=== PATIENT | female | born 1930 | race Caucasian/White ===

== ENCOUNTER 2017-02-10 22:13 | Inpatient (IN) | payer MEDICARE ==
[~2017-02-10] VITALS: Ht 152.4 cm; Wt 62.3 kg
[~2017-02-10 22:13] MED LIST: AMLO2.5T PO; ATOR10TA66 PO; LEVO50TA6 PO; MONT10TA23 PO; OXYC5TAB72 PO; SERT100T9 PO; TOLT2TAB5 PO
[2017-02-10 22:27] VITALS: BP 224/57; PULSE 75; RESP 14; O2SAT 96
[2017-02-10 22:51] LABS: BASOPHILS % (AUTO) 0.3 % (0-3); EOSINOPHILS % (AUTO) 1.5 % (0-5); MONOCYTES % (AUTO) 6.4 % (4-12); Mean Corpuscular Hemoglobin 29.5 pg (27.0-35.0); Mean Corpuscular Volume 87.4 fL (81-100); Platelet Count 183 bil/L (150-400)
[2017-02-10 23:39] LABS: D-Dimer 2.44 mg/L FEU (<0.50); INR 0.96 ratio
[2017-02-10] MEDS: HYDROmorphone 1 mg/mL Inj IVPUSH PRN (23:40)
--- NOTE | 2017-02-10 23:40 | ED.REPORT ---
HPI-Abd Pain F 40 and Over Date of Service February 10, 2017 ED Provider: Yariel Guajardo MD Patient is an 86-year-old female with history of DVT, hyperlipidemia, hypothyroidism and depression presents to [facility] ED via EMS complaining of severe abdominal pain that started 4 hours ago after eating salad and soup for dinner. Patient lives independently and states she has been feeling well until this afternoon. She called her daughter about 2 hours after the onset of symptoms stating that she had vomited 3 times and that pain was getting worse. Patient denies chills, fever, chest pain, shortness of breath, diarrhea, dysuria, weakness. Patient states that the pain is similar to gallbladder attack pain that she used to have about 10 years ago prior to her cholecystectomy. Her nausea was relieved by Zofran given to her in the ambulance. She states her pain is intermittent, located in the midabdomen and is 8 out of 10. Denies hematemesis melena hematochezia. Recent diarrheal episode resolved with a single dose of Imodium. No prior similar episodes. . Nursing Notes Stated Complaint: ABDOMINAL PAIN Chief Complaint: Female Abdominal Pain Nursing Notes Reviewed: Yes Allergies: Coded Allergies: losartan (Verified Allergy, Unknown, RASH, 02/10/17) Uncoded Allergies: nsaids (Adverse Reaction, Intermediate, renal impairment, 01/27/12) Scheduled Amlodipine (Amlodipine) 2.5 Mg Tablet 2.5 MG PO DAILY Atorvastatin Calcium (Atorvastatin Calcium) 10 Mg Tablet 20 MG PO DAILY Levothyroxine (Levothyroxine) 50 Mcg Tablet 50 MCG PO DAILY Montelukast (Montelukast) 10 Mg Tablet 10 MG PO HS Sertraline HCl (Sertraline) 100 Mg Tablet 100 MG PO DAILY Tolterodine Tartrate (Tolterodine Tartrate) 2 Mg Tablet 2 MG PO DAILY Scheduled PRN oxyCODONE (oxyCODONE) 5 Mg Tablet 5 MG PO BID PRN PRN For Pain General Time Seen by MD: 10:55 Transferred From: senior living Chief Complaint Abdominal pain Hx Obtained From: Patient, Daughter Arrived By: Ambulance Sudden in Onset?: Yes Onset Occurred: 1 - 4 hours ago Context of Onset: Eating Symptom Duration: 1 - 4 hours Progression since Onset: Unchanged Location: : Periumbilical Quality: Same as prior Radiation: : Does not radiate Severity: Current: Severe Associated with: Reports: Vomiting Pertinent Negative: Pt denies other symptoms Risk Factors )( AAA Risk Stratification Hypertension CAD Risk Stratification Diabetes mellitus Hyperlipidemia Hypertension TAD Risk Stratification Hypertension Past Medical History Past Medical History Varicose veins Hearing loss Hypertension DVT, left lower extremity, 2015 no longer on Coumadin Reports: Asthma, COPD, Diabetes mellitus (diet controlled), Hyperlipidemia Reports: Depression, Renal insufficiency Past Surgical History Stapedectomy Breast Bx Reports: Cataract surgery, Cholecystectomy, Denies: Appendectomy Reports: Hip replacement (Right) Smoking History Former Smoker Social History Alcohol Use: "Social" Other Social History: Good social support, Lives alone Ambulatory Status Walker Review of Systems Constitutional: Denies: Chills, Fatigue, Fever, Lethargy Respiratory: Denies: Shortness of breath Cardiovascular: Denies: Chest pain, Edema, Palpitations, Syncope GI: Reports: Abdominal pain, Nausea, Vomiting, Denies: Constipation, Diarrhea, Hematemesis, Hematochezia, Melena Female: Denies: Dysuria, Flank pain Musculoskeletal: Denies: Back pain, Extremity swelling Physical Exam Vital Signs Vital Signs (First) Date Time Temp Pulse Resp B/P Pulse Ox O2 Delivery O2 Flow Rate FiO2 02/10/17 22:27 36.3 75 14 224/57 96 Room Air 02/11/17 00:48 2 Initial VS: Reviewed, Vital signs abnormal (BP 224/57) General/Constitutional: Awake, Alert, Well appearing, Well developed, Well nourished Distress / Hydration: Positive: Distress mild Respiratory / Chest: Atraumatic, Breath sounds NL, No respiratory distress, No rales, No rhonchi, No wheezing Cardiovascular: Regular rhythm, Heart sounds NL, No murmurs, Cap refill not delayed Abdomen: Atraumatic, No guarding, No rebound, BS normoactive, No palpable mass , No pulsatile mass Tenderness/Guarding/Rebound: Positive: Tender periumbilical Back: Atraumatic, Inspection NL, Non-tender Head / Eyes: Atraumatic, Normocephalic, PERRL, EOMI ENT: Atraumatic, Mucous membranes moist Skin: No rash, Warm, Dry Neurologic: Oriented X3 Cranial Nerve Deficit: Positive: 8 - auditory deficit Psychiatric: Affect NL, Thought content NL Interpretation & Diagnostics Lab Results Interpretation Result Diagram: 02/10/17223602/10/172236 Test 02/10/17 22:37 02/10/17 22:43 02/10/17 23:27 02/11/17 01:36 White Blood Count 15.1th/mm3 (3.8-10.1) Red Blood Count 5.46mil/mm3 (3.90-5.20) Hemoglobin 16.1g/dL (12.0-15.6) Hematocrit 47.7% (35.0-46.0) Mean Corpuscular Volume 87.4fL (81-100) Mean Corpuscular Hemoglobin 29.5pg (27.0-35.0) Mean Corpuscular Hemoglobin Concent 33.8% (32.0-37.0) Red Cell Distribution Width 13.4% (12.3-15.4) Platelet Count 183bil/L (150-400) Neutrophils (%) (Auto) 87.0% (40-74) Lymphocytes (%) (Auto) 4.6% (14-46) Monocytes (%) (Auto) 6.4% (4-12) Eosinophils (%) (Auto) 1.5% (0-5) Basophils (%) (Auto) 0.3% (0-3) Sodium Level 143mEq/L (134-144) Potassium Level 3.4mEq/L (3.5-5.2) Chloride Level 99mEq/L (97-108) Carbon Dioxide Level 27mmol/L (18-29) Blood Urea Nitrogen 30mg/dL (8-27) Creatinine 0.97mg/dL (0.57-1.00) Estimat Glomerular Filtration Rate 78mL/min (>59) Glucose Level 220mg/dL (60-99) Calcium Level 10.1mg/dL (8.5-10.1) Magnesium Level 2.0mg/dL (1.6-2.6) Total Bilirubin 0.3mg/dL (0.0-1.2) Aspartate Amino Transf (AST/SGOT) 16U/L (0-50) Alanine Aminotransferase (ALT/SGPT) 14U/L (0-32) Alkaline Phosphatase 71U/L (25-165) Total Protein 7.3g/dL (6.4-8.4) Albumin 3.9g/dL (3.4-5.0) Lipase 32U/L (13-60) Prothrombin Time 10.3sec (8.1-12.5) Prothromb Time International Ratio 0.96ratio D-Dimer 2.44mg/L FEU (<0.50) Lactic Acid Level 1.0mmol/L (0.4-2.0) Hold Urine Received (Received) General Lab Results Interp 1: CMP normal except (potassium 3.4, BUN 30), CBC - leukocytosis (15.1) General Lab Results Interp 2: D-Dimer elevated (2.44) ECG Interpretation ECG Interpretation: Sinus rhythm, HR 78 PVC's Left ventricular hypertrophy Inverted T waves in inferior leads QT interval 556 Time: 10:50 Interpreted by: Other (Nazario, R1) Procedures NG Tube Insertion Time: 02:05 Procedure Performed by: Allied health pract (E) Site of Insertion: Nare left Size of Oral/NG Tube: 14 Fr (ER nurse) Placement/Verification/Secured: Insertion difficult Re-Eval/Medical Decision Med Decision/Clinical Course 86-year-old female presents with acute onset of abdominal pain. Found to be hypertensive, BP 224/57, have leukocytosis 15.1 and d-dimer 2.44. Dilaudid IV administered for pain with good response in terms of pain relief and blood pressure improvement to 177/58. Initial concerns for aortic dissection, ischemic bowel, obstruction, and diverticulitis evaluated with CT. CT abdomen and pelvis with contrast revealed small bowel obstruction. NG tube placed. Significant vascular disease all along the aorta, but contrast noted to be visible both in the superior and inferior mesenteric arteries. Both ostia are compromised, but there is blood flow to this point. No other evidence to suggest ischemic bowel. Patient will be admitted for treatment and management of SBO. Re-Evaluation/Progress : Time of Eval: 00:35 )( Re-Eval Abdomen: Tenderness (mid abdomen) Differential Diagnosis: Positive: Appendicitis, Bowel obstruction, Ischemic bowel, Mesenteric ischemia Counseled Regarding: Diagnosis, Lab results, Need for admission Discharge & Departure Shift Change Sign-Out Response to Therapy: Improved Departure Notes Dr. Guajardo, ED physician, discussed patient with night hospitalist, Dr. Reyes, who agreed with the plan to admit the patient. Primary Impression: SBO (small bowel obstruction) Additional Impression: Atherosclerosis of abdominal aorta Disposition: ADMITTED TO HOSPITAL Discharge Condition All VS Reviewed: Yes Condition: Stable Referrals: Aletha Maldonado MD (PCP) EDSupervising Provider for APC: Yariel Guajardo MD Attending Statement As attending of record for this patient, I conducted an independent history and physical exam, and agree with the documentation as per the resident note above, and as amended. copies to: Aletha Maldonado MD, Oksana S DO February 10, 2017 23:40 Yariel Guajardo MD February 11, 2017 07:08
[2017-02-10 23:41] VITALS: BP 181/49
[2017-02-11] VITALS (11 sets, daily range): BP systolic 158–197; BP diastolic 58–98; PULSE 58–88; RESP 12–20; O2SAT 92–97
[2017-02-11] MEDS ORDERED: Ondansetron 2 mg/mL 2 mL Inj IVPUSH PRN ×2 (01:50→13:00)
[2017-02-11] MEDS ORDERED: Polyethylene Glycol (PEG) 17 Gm Powder PO PRN ×2 (01:50→13:00)
[2017-02-11] MEDS ORDERED: Alum-Mag Hydrox-Simeth 30 mL Suspension PO PRN ×2 (01:50→13:00)
[2017-02-11] MEDS: 0.9% Sodium Chloride 1,000 ML IV SCH ×3 (02:54→20:44)
[2017-02-11] MEDS: HYDROmorphone 1 mg/mL Inj IVPUSH PRN ×4 (03:00→22:31)
--- NOTE | 2017-02-11 05:15 | NUR ---
ADMIT Patient admit for SBO. SALCEDO pulling bile like drainage. Right upper quadrant, hyperactive. Reports pain relieved at this time. Resting comfortably. Oriented to room and call light. Addendum: 02/11/17 at 0530 by HOMAR EMERSON RN Med [facility] Patient's daughter plans to bring in list this a.m. of her medications.
[2017-02-11 07:58] LABS: APPEARANCE,URINE CLEAR (CLEAR,HAZY); COLOR,URINE STRAW (YELLOW); OCCULT BLOOD,URINE NEGATIVE (NEGATIVE); PH,URINE 7.5 (5.0-8.0); UROBILINOGEN,URINE NORMAL (NORMAL)
--- NOTE | 2017-02-11 08:29 | DRSVH ---
PROCEDURE: X-RAY CHEST, TWO VIEWS ([id number]) INDICATIONS: abdominal pain TECHNIQUE: 2 views of the chest were acquired. COMPARISON: [facility], CR, CHEST 2VW, 03/21/2010, 7:56. Abdomen and pelvis CT from February. FINDINGS: Surgical changes and devices: None. Lungs and pleura: No pleural effusions or pneumothorax. Left basilar atelectasis otherwise the lungs are clear. Mediastinum: Mediastinal contours are normal. Heart size is normal. Bones and chest wall: No suspicious bony abnormalities. Soft tissues appear unremarkable. Elevatio n of the left hemidiaphragm. IMPRESSION: Normal chest radiograph. Dictated by: Gamaliel Oneil M.D. on 02/11/2017 at 8:18 Approved by: Gamaliel Oneil M.D. on 02/11/2017 at 8:22
[2017-02-11] MEDS: Heparin 5,000 Unit/mL Inj SUBQ SCH ×2 (08:55→16:24)
--- NOTE | 2017-02-11 09:20 | DRSVH ---
PROCEDURE: CT ABDOMEN AND PELVIS WITH CONTRAST ([id number]) INDICATIONS: abdominal pain TECHNIQUE: After the administration of intravenous contrast, 5 mm thick sections acquired from the diaphragm to the symphysis. 5 mm coronal and sagittal reformats were acquired. For radiation dose reduction, the following was used: automated exposure control, adjustment of mA and/or kV according to patient siz e. COMPARISON: None. FINDINGS: Image quality: Excellent. ABDOMEN: Lung bases: Lung bases are clear. Heart size is normal. Solid organs: Liver and spleen are normal in size. There is a 1.8 cm cyst in spleen. Gallbladder is surgically absent. Biliary system is mildly dilated. Pancreas enhances normally. No adrenal nodule s. Kidneys demonstrate normal size and enhancement, without hydronephrosis. Bilateral low density n odules compatible with renal cysts are present. Peritoneum and bowel: There is fluid in distal esophagus likely secondary to gastroesophageal reflux . Stomach is distended. Small bowel loops mildly distended measuring thickness up to 3.5 cm in diamet er. There is transitional point in the mid to distal ileum. Colon loops is decompressed. There are n umerous colonic diverticula in sigmoid colon. No evidence for acute diverticulitis. No free fluid or air. Nodes and vessels: No retroperitoneal or mesenteric adenopathy by size criteria. Aorta and inferior vena cava are normal in size. There is moderate to severe atherosclerosis. Miscellaneous: No ventral hernias. PELVIS: Genitourinary: Bladder is distended. Bladder wall thickness is normal. Uterus is atrophic. There is a 1.5 cm calcified fibroid. Miscellaneous: No inguinal hernias or adenopathy. Bones: No suspicious bony lesions. No vertebral body compression fractures. There is mild scoliosi s. Severe degenerative changes in lower thoracic and lumbar spine. A right hip prosthesis is noted. IMPRESSION: 1. The CT findings are consistent with moderate small bowel obstruction. The transitional point is in the mid to distal ileum. 2. Diverticulosis. No evidence of active diverticulitis. 3. Bilateral renal cysts and a splenic cyst. No significant discrepancy with the automotive general sales manager radiology preliminary report. Dictated by: Lesli Wilson M.D. on 02/11/2017 at 9:13 Transcribed by: JULIÁN on 02/11/2017 at 9:19 Approved by: Lesli Wilson M.D. on 02/12/2017 at 7:52
--- NOTE | 2017-02-11 10:36 | NUR ---
care transferred to Ximena Westfall RN. report given, patient moved to [facility] [place] [place] rm [id number].
[2017-02-11] MEDS ORDERED: AMLO5TAB2 PO (11:56)
[2017-02-11] MEDS ORDERED: BECL8.7A6 INHALATION (12:14)
[2017-02-11] MEDS ORDERED: ALBU18HF INH (12:14)
[2017-02-11] MEDS ORDERED: FLUT9.9S NS (12:14)
[2017-02-11] MEDS ORDERED: IMI25 PO (12:16)
[2017-02-11] MEDS ORDERED: Enalaprilat 1.25 mg/mL 2 mL Inj IVPUSH ONE (13:20)
--- NOTE | 2017-02-11 13:20 | PCM.HPMED ---
Subjective Date of Service February 11, 2017 Primary Provider: Admitting Physician: Chip eRyes MD Primary Care Physician: Aletha Maldonado MD Attending Physician: Chip Reyes MD Allergies Coded Allergies: losartan (Verified Allergy, Unknown, RASH, 02/10/17) PMH Social History Hx Alcohol Use: Yes (1/mo) Hx Substance Use: No Hx Tobacco Use: No (Exposed to 2nd hand smoke most of her life) Smoking Status: Former Smoker Exam Vital Signs Vital Sign - Last Date Time Temp Pulse Resp B/P Pulse Ox O2 Delivery O2 Flow Rate FiO2 02/11/17 11:46 36.7 58 15 186/86 93 Nasal Cannula 2.00 Intake and Output 02/10/17 02/10/17 02/11/17 Cumulative From/Thru 15:00 23:00 07:00 02/10/17 22:27 - 02/11/17 05:30 Output Total 1500 ml 1500 ml Balance -1500 ml -1500 ml Output Urine Total 800 ml 800 ml Gastric Drainage Total 700 ml 700 ml Lab and Diagnostics Result Diagram: 02/10/17223602/10/172236 Assessment & Plan HPI: Patient is an 86-year-old female presents with a complaint of abdominal pain, constipation, nausea, vomiting since last night. The patient stated that she had severe abdominal pain and decided to call her daughter who then brought her into the emergency room. The patient stated that she did have a bowel movement yesterday morning however as the day progressed she started having increasing abdominal pain. The patient was admitted to the emergency room and was found to have a small bowel obstruction based on CAT scan. NG tube was placed with significant output. Home medications: Albuterol 2 puffs every 4 when necessary Amlodipine 5 mg by mouth daily Atorvastatin 20 mg by mouth daily Qvar 2 puffs twice a day Flonase 2 sprays 3 times a day Levothyroxine 50 g by mouth daily Montelukast 10 mg by mouth daily Sertraline 100 mg by mouth daily Imitrex 25 mg by mouth when necessary headache Tolterodine titrate 2 mg by mouth daily Allergies: Losartan PMHx: HTN DM- diet controlled HLD Hypothyroid SHx: Cholecystectomy Left ear surgery FHx: Significant family history for heart disease. Mother had an NC at age 60, brother has had 3 MIs, patient had renal cause with NC's SocHx: Tobacco history: Patient denies Alcohol use: Patient denies Drug use: Patient denies ROS: A complete review of systems was performed or attempted to be performed. Please see HPI for pertinent positives, all other systems are negatives. Physical Exam: GEN: Patient was awake, alert, responding appropriately to questions HEENT: Pupils equal round and reactive to light, extraocular eye muscles intact , Neck soft supple, trachea midline, nomocephalic/atraumatic CV: +S1/S2, regular rate and rhythm, no murmurs auscultated Respiratory: CTAB, no wheezes, rales, rhonchi GI: +bowel sounds x4, soft, compressible, nontender to palpation EXT: no clubbing, cyanosis, edema Neuro: Cranial nerves II-XII grossly intact Psych: mood and affect were appropriate Assessment and Plan A 86-year-old female who presents to the emergency room with abdominal pain secondary to small bowel obstruction Abdominal pain secondary to small bowel obstruction -NG tube to suction -Nothing by mouth -Continue to monitor Hypertension (uncontrolled) -Home PO medications -Start enalapril 1.25 mg IV -Continue to monitor and adjust as necessary Hypothyroidism (stable) -Continue levothyroxine 50 g daily Depression (stable) -Continue Zoloft 100 mg by mouth Hyperlipidemia -Hold atorvastatin at this time will restart once patient is no longer nothing by mouth Asthma (currently stable) -Continue albuterol when necessary -Continue Qvar -Continue montelukast daily Migraines (he currently stable) -Imitrex when necessary Diet: Nothing by mouth DVT prophylaxis: Lovenox and SCDs Code Status: DNR/DNI Disposition: Due to the nature of the patient's current diagnosis anticipated stay is greater than 2 midnight Time spent 1 hour Mariama Lucia DO February 11, 2017 13:20
[2017-02-11] MEDS ORDERED: Albuterol 2.5 mg/3 mL Inhalation Solution NEB PRN (14:30)
--- NOTE | 2017-02-11 14:53 | PCM.ADCARE ---
Advance Care Planning Note Adv. Care Plan Documenation: Purpose of encounter: Goals of care Parties in attendance: The patient, her daughter Salud Decisional capacity: Good Plan: The patient is aware of the current diagnosis and would like to be DO NOT RESUSCITATE/DO NOT INTUBATE. The patient understands that no chest compressions will be done and the patient will not be intubated. The patient and family understands that no form of CPR will be attempted and are in agreement with this. The patient does still want other measures performed such as IV fluids, antibiotics, and possible blood transfusions but does not want any form of CPR. CODE STATUS: DO NOT RESUSCITATE/DO NOT INTUBATE Time spent with advanced care planning: Greater than 16 minutes Mariama Lucia DO February 11, 2017 14:53
--- NOTE | 2017-02-11 18:36 | NUR ---
pain, NG tube pt. c/o increased abd pain/cramping this afternoon; prn dilaudid 1mg iv given with relief. Pt. resting comfortably in bed. NG tube to continuous low suction; 250 ml dark green bile like liquid output. Denies n/v. Spears draining per gravity. NG tube clamped for 30 minutes after 1730 singulair dose administered; reconnected pt. to continuous low suction. 3L NC sats 93-95%.
[2017-02-11] MEDS: Fluticasone 100 mCg Inhaler INHALATION SCH (20:43)
[2017-02-12] MEDS: Heparin 5,000 Unit/mL Inj SUBQ SCH ×3 (01:01→17:22)
[2017-02-12 01:10] VITALS: BP 167/68; PULSE 65; RESP 18; O2SAT 94
[2017-02-12] MEDS: HYDROmorphone 1 mg/mL Inj IVPUSH PRN ×2 (05:53→14:54)
[2017-02-12 06:03] VITALS: BP 171/70; PULSE 75; RESP 17; O2SAT 94
--- NOTE | 2017-02-12 06:11 | NUR ---
Activity Pt reported as not having passed gas nor BM. Pt had intermittent abdomen pain. PRN Dilaudid 1mg IV given with good relief. Spears draining to gravity. NG tube on low continuous suction with 250 ml dark green output.
[2017-02-12 06:56] LABS: Mean Corpuscular Hemoglobin 29.6 pg (27.0-35.0); Mean Corpuscular Volume 92.7 fL (81-100)
[2017-02-12] MEDS: Tolterodine ER 2 mg ER24 Capsule PO SCH (08:03)
[2017-02-12] MEDS: Fluticasone 100 mCg Inhaler INHALATION SCH ×2 (08:03→20:02)
[2017-02-12] MEDS: 0.9% Sodium Chloride 1,000 ML IV SCH (08:08)
[2017-02-12] MEDS: D5 0.45% NaCl + KCl 40 mEq/L 1,000 ML IV SCH (09:36)
--- NOTE | 2017-02-12 10:00 | NUR ---
PT mental health worker talked with RN about getting PT to work with patient. Granddaughter who is GRANITE WORKER at [employer], came into room and got patient into the chair at 1210. Pt tolerated being up until 1245, then requested going back to bed. Daughter at bedside, no c/o from patient. No n/v at this time. On continues NG suction. Addendum: 02/12/17 at 1507 by FORREST CASTELLANO RN Pt granddaughter back in room, c/o that pt IV was puffy, and she turned off her Potassium IV drip. Asked for IV to be replaced. IV was infusing fine when RN was in room 20 mins prior. Charge went in and talked with granddaughter and said she would call IV therapy for new IV. Addendum: 02/12/17 at 1509 by FORREST CASTELLANO RN PT c/o of abd pain 03/14, given 1mg Dilaudid IV. PT was going to work with pt but pt pain was to intense. PT will try and check in later, or in morning. Addendum: 02/12/17 at 1811 by FORREST CASTELLANO RN Pt granddaughter back at bedside. Asking RN to show her progress notes. RN stated I cant show the notes, but would look in computer and see what Dr Noel wrote. Dr Noel had not written any progress notes at this time. RN asked Nursing engineering team supervisor about the progress notes, and what to do. Erasmo came to nursing station and requested to see notes as well. Edouard claros stated no you cannot see them if you are not authorized to. Granddaughter stated that she wasn't but that her grandma would sign it. radio interference supervisor went to room to discuss this with grandchanoughter, and paged Dr Noel to come to room or call.
--- NOTE | 2017-02-12 12:03 | NUR ---
Social work note - Initial assessment Heidi Baxter is a 86 yr old who is being admitted for small bowel obstruction - has NG tube. EMR reviewed: Pt has [employer] [place]. Her PCP is Dr Maldonado. No LTC insurance, No VA benefits. Has DPOA in EMR. Readmit score is 3 - High. See attached CM initial assessment. NOXIOUS WEEDS AND PEST INSPECTOR met with pt - pt's daughter also in the room. NOXIOUS WEEDS AND PEST INSPECTOR introduced D/C planning and explained SW role. Pt is very hard of hearing - has hearing aides which help. Pt lives at [facility]. She uses a walker at base, no other equipment. She states that she hopes to return to her apartment - admits that she has not been out of bed yet and wants to keep her strength up. NOXIOUS WEEDS AND PEST INSPECTOR discussed with RN - will explore PT evaluation if appropriate. Pt and family deny any other needs - will continue to follow. Plan: Goal to return to [facility] - May benefit from Home Health. ZARINA Garcia Addendum: 02/12/17 at 1210 by CLIFFORD ORTEGA SS Amended: Links added.
[2017-02-12 18:24] VITALS: BP 190/67; PULSE 60; RESP 18; O2SAT 95
--- NOTE | 2017-02-12 19:04 | PCM.PNMED ---
Subjective Date of Service February 12, 2017 Subjective Patient is confused Really hear but says she is comfortable. What I hear from nursing staff is that every time they clamp the tube where she take something by mouth she is having nausea and belching. Her neighbor tells me she has passed gas but she has not had a bowel movement. She denies any chest pain or dyspnea. The patient really is not a reliable historian. Exam Vital Signs Vital Sign - Last Date Time Temp Pulse Resp B/P Pulse Ox O2 Delivery O2 Flow Rate FiO2 02/12/17 18:24 36.9 60 18 190/67 95 Nasal Cannula 4.00 Intake and Output 02/11/17 02/11/17 02/12/17 Cumulative From/Thru 15:00 23:00 07:00 02/10/17 22:27 - 02/12/17 06:10 Intake Total 1530 ml 1038 ml 2568 ml Output Total 900 ml 650 ml 3050 ml Balance 630 ml 388 ml -482 ml Intake Oral 100 ml 100 ml IV Total 1530 ml 938 ml 2468 ml Output Urine Total 650 ml 650 ml 2100 ml Gastric Drainage Total 250 ml 950 ml # Bowel Movements 0 0 Exam Gen.- A+ O 2-3? no apparent distress. Frail elderly female lying in bed Eyes- open conjunctiva clear, pupils equal nonicteric Mouth- oral mucosa moist, no exudate ENT- ears normal, nose normal NG tube protruding from nose putting out feculent material Neck- supple/trach midline CVS- RRR no murmur or gallop Lungs- CTA GI- NT soft diminished breath sounds in sound suction from NG tube in stomach Musc- moving 4 no obvious deformity Neuro- cranial nerves II through XII intact to gross examination, nonfocal Skin- warm and dry, no rashes/lesions/wounds noted Psych- pleasant and appropriate, Lab and Diagnostics Result Diagram: 02/12/17 0635 02/12/17 0635 Assessment & Plan 86-year-old female admitted 02/11 presents with a complaint of abdominal pain, constipation, nausea, vomiting x24hrs. 02/12 does not seem patient is making any progress. If nothing changes we will consult surgery tomorrow 02/13 spoke with her granddaughter who is a PACU nurse [facility]. Today we added when necessary hydralazine SBP greater than 160 and prophylactic pantoprazole. Changing NS to d5NS w 20 of K ongoing fluid maintenance in the setting of of hypokalemia and hypernatremia. small bowel obstruction-patient is getting a little bit of IV Dilaudid intermittently for ongoing pain, and Zofran for ongoing intermittent nausea anytime we clamp -NG tube to suction -Nothing by mouth -Continue to monitor Hypertension (uncontrolled) -Amlodipine is not being absorbed -Start enalapril 1.25 mg IV 02/11, adding hydralazine 10 mg IV every 4 when necessary SBP greater than 160 -Continue to monitor and adjust as necessary Hypothyroidism (stable)-Continue levothyroxine 50 g daily as able. Depression (stable)- -Continue Zoloft 100 mg by mouth Hyperlipidemia-Hold atorvastatin at this time will restart once patient is no longer nothing by mouth Asthma (currently stable) -Continue albuterol when necessary -Continue Qvar -Continue montelukast daily Migraines (he currently stable) -Imitrex when necessary Diet: Nothing by mouth DVT prophylaxis: Lovenox and SCDs Code Status: DNR/DNI Disposition: Due to the nature of the patient's current diagnosis anticipated stay is greater than 2 midnight VTE Mechanical Devices: Intermittant Pneumatic CD Scott Noel MD February 12, 2017 19:04
[2017-02-12 20:07] VITALS: BP 195/66; PULSE 66; RESP 17; O2SAT 94
[2017-02-13] VITALS (10 sets, daily range): BP systolic 146–199; BP diastolic 61–74; PULSE 60–89; RESP 16–19; O2SAT 86–97
[2017-02-13] MEDS: Heparin 5,000 Unit/mL Inj SUBQ SCH ×3 (00:30→16:36)
--- NOTE | 2017-02-13 02:48 | NUR ---
Agitation patients IV pump was alarming came in room to find patient had pulled NG tube out O2 nc off, disconnected Spears bag from catheter and pulled IV out, she was quite adamant about allowing placement of any tubes including Spears bag, moved patient closer to nursing station attempted to call tucker @ [phone] w/out success, text paged obtained order to d/c Spears and leave NG out until later today unless n/v and will attempt to regain IV access if she becomes more agreeable to it. Addendum: 02/13/17 at 0604 by CAMELIA JOLLY RN Was able to get IV access reestablished
[2017-02-13] MEDS: D5 0.45% NaCl + KCl 40 mEq/L 1,000 ML IV SCH ×2 (04:36→11:00)
[2017-02-13 06:48] LABS: BASOPHILS % (AUTO) 0.4 % (0-3); EOSINOPHILS % (AUTO) 3.1 % (0-5); MONOCYTES % (AUTO) 11.1 % (4-12); Mean Corpuscular Hemoglobin 29.9 pg (27.0-35.0); Mean Corpuscular Volume 91.8 fL (81-100); NEUTROPHILS % (AUTO) 76.6 % (40-74); Platelet Count 138 bil/L (150-400)
[2017-02-13 07:42] LABS: Magnesium 1.9 mg/dL (1.6-2.6)
[2017-02-13] MEDS: Tolterodine ER 2 mg ER24 Capsule PO SCH (08:00)
[2017-02-13] MEDS: hydrALAZINE 20 mg/mL Inj IV SCH ×4 (08:07→20:30)
[2017-02-13] MEDS: Pantoprazole 4 mg/mL 10 mL Inj IVPUSH SCH (08:11)
[2017-02-13] MEDS: Fluticasone 100 mCg Inhaler INHALATION SCH ×2 (10:03→21:13)
[2017-02-13] MEDS ORDERED: Magnesium Hydroxide 10 mL Oral Concentration PO ONE (10:30)
--- NOTE | 2017-02-13 12:31 | PCM.PNMED ---
Subjective Date of Service February 13, 2017 Subjective Patient denying abdominal pain nausea or vomiting, or at least not so bad that she wants any medication and wants to try eating. She very probably let me know that she was "a crazy old lady" last night and was rather coronary and was planning on kicking somebody the only thing that happened at was accidental was the removal of her NG tube. The IV and other thing she did was delivered. It sounds as though there were communication issues because patient did not understand what was happening because she could not hear caregivers. Granddaughter at bedside recommending if in doubt communicating by writing. Exam Vital Signs Vital Sign - Last Date Time Temp Pulse Resp B/P Pulse Ox O2 Delivery O2 Flow Rate FiO2 02/13/17 11:30 Supplement Oxygen 02/13/17 11:05 87 18 94 4.00 02/13/17 09:35 192/67 02/13/17 07:52 36.4 Intake and Output 02/12/17 02/12/17 02/13/17 Cumulative From/Thru 15:00 23:00 07:00 02/10/17 22:27 - 02/13/17 06:14 Intake Total 1518 ml 4086 ml Output Total 900 ml 3950 ml Balance 618 ml 136 ml Intake Oral 120 ml 220 ml IV Total 1398 ml 3866 ml Output Urine Total 900 ml 3000 ml Gastric Drainage Total 950 ml # Voids 1 1 # Bowel Movements 0 Exam Gen.- A+ O 3 no apparent distress. Frail elderly female lying in bed she seems pretty lucid to me Eyes- open conjunctiva clear, pupils equal nonicteric Mouth- oral mucosa moist, no exudate ENT- ears normal, nose normal NG tube protruding from nose putting out feculent material, she is extremely hard of hearing but fakes listening well Neck- supple/trach midline CVS- RRR no murmur or gallop Lungs- CTA GI- NT soft, NABS/NT Musc- moving 4 no obvious deformity Neuro- cranial nerves II through XII intact to gross examination, nonfocal Skin- warm and dry, no rashes/lesions/wounds noted Psych- pleasant and appropriate, Lab and Diagnostics Result Diagram: 02/13/1762702/13/17627 Assessment & Plan 86-year-old female admitted 02/11 presents with a complaint of abdominal pain, constipation, nausea, vomiting x24hrs. 02/12 does not seem patient is making any progress. If nothing changes we will consult surgery tomorrow 02/13 spoke with her granddaughter who is a PACU nurse [employer] [employer]. Today we added when necessary hydralazine SBP greater than 160 and prophylactic pantoprazole. Changing NS to d5NS w 20 of K ongoing fluid maintenance in the setting of of hypokalemia and hypernatremia. 02/13 sodium, potassium, magnesium alright today, for now I am stopping IV fluids and hoping patient tolerates by mouth intake, she had large bowel movement overnight. This represents a huge change from my expectations from . We will start her on clear liquids, a gentle bowel regimen, and her regular oral medications. #small bowel obstruction- not needing IV antiemetics/pain meds today. Had large bowel movement overnight -NG tube to suction. By patient overnight 02/13 -Clear liquids 02/13 #Allergies/sinusitis-resume cetirizine/Flonase 02/13 #Hypertension (uncontrolled)Hyperlipidemia- -Start enalapril 1.25 mg IV 02/11, adding hydralazine 10 mg IV every 4 when necessary SBP greater than 160 -Amlodipine resume 10 mg 02/13 -resume atorvastatin 02/13 #Hypothyroidism (stable)-Continue levothyroxine 50 g daily as able. #Depression (stable)- -Continue Zoloft 100 mg by mouth #Asthma (currently stable) -Continue albuterol when necessary -Continue Qvar -Continue montelukast daily #Migraines (he currently stable) -Imitrex when necessary DVT prophylaxis: Lovenox and SCDs Code Status: DNR/DNI VTE Mechanical Devices: Intermittant Pneumatic CD Scott Noel MD February 13, 2017 12:31 VTE Mechanical Devices: Intermittant Pneumatic CD Scott Noel MD February 13, 2017 12:31
[2017-02-13] MEDS ORDERED: Fluticasone 0.05% 15 Spray/2 Gm 16 Gm Nasal Spray NASAL ONE (12:35)
--- NOTE | 2017-02-13 14:00 | NUR ---
PO hydralazine Per hospitalist, pt to receive PO hydralazine and not IV hydralazine for elevated BP, as the IV hydralazine was ineffective this morning. Will continue to monitor.
--- NOTE | 2017-02-13 15:20 | NUR ---
NUTRITION ASSESSMENT: ASSESS: 86YO F with SBO, now s/p large BM, diet advanced to clears. PMHX: Asthma, Depression, HTN, Migraine DIET: Clear Liquid. No po recorded LABS: Glu 147,Alb 2.8 MEDS: Reviewed GI:+BM, NG tube to suction WEIGHT:62.3kg BMI: 26.8 EST.NEEDS: 25-30kcal/kg;1.0-1.2g/kg pro Kcal: 2701-7734 Pro: 60-75g NUTRITION DIAGNOSIS: (1) Inadequate oral intake related to altered GI tract function as evidenced by NPO/Clear Liquid x 2d. INTERVENTION: (1) Clear Liquid supplement added to meal trays. (2) Monitor for diet advancement vs. potential for nutrition support. MONITOR/EVALUATE: F/U per high risk.
[2017-02-13] MEDS: Fluticasone 0.05% 15 Spray/2 Gm 16 Gm Nasal Spray NASAL SCH (16:31)
[2017-02-14] MEDS: D5 0.45% NaCl + KCl 40 mEq/L 1,000 ML IV SCH (00:20)
[2017-02-14] MEDS: Heparin 5,000 Unit/mL Inj SUBQ SCH ×2 (00:30→09:13)
[2017-02-14] MEDS: hydrALAZINE 20 mg/mL Inj IV SCH ×4 (00:30→11:51)
--- NOTE | 2017-02-14 01:24 | NUR ---
VS/heparin patient refused VS and heparin "go away don't wake me in the middle of night!" she does still have scd's and O2 canula on.
[2017-02-14 03:21] VITALS: BP 154/50; PULSE 68; RESP 18; O2SAT 93
--- NOTE | 2017-02-14 06:00 | NUR ---
HTN continues to be hypertensive gave prn oral dose twice verses IV adi. per notes and report.
[2017-02-14 06:01] VITALS: BP 172/68; PULSE 62; RESP 17; O2SAT 95
[2017-02-14] MEDS: Tolterodine ER 2 mg ER24 Capsule PO SCH (07:17)
[2017-02-14] MEDS: Fluticasone 0.05% 15 Spray/2 Gm 16 Gm Nasal Spray NASAL SCH (07:53)
[2017-02-14] MEDS: Pantoprazole 4 mg/mL 10 mL Inj IVPUSH SCH (07:56)
[2017-02-14] MEDS: Fluticasone 100 mCg Inhaler INHALATION SCH (07:58)
--- NOTE | 2017-02-14 08:16 | NUR ---
Evaluation completed. Please go to "Notes" then click on "Assessments and Notes" (bottom left corner of screen). Then select appropriate discipline tab on top of screen.
[2017-02-14 08:30] VITALS: BP 137/72; PULSE 82; RESP 20; O2SAT 92
--- NOTE | 2017-02-14 10:53 | NUR ---
[facility] signed
--- NOTE | 2017-02-14 11:00 | PCM.DIMED ---
Discharge Instructions Date of Service February 14, 2017 Dates of Hospitalization February 11, 2017 at 02:12 Discharge Diagnosis Discharge Diagnosis partial bowel obst Diet Heart Healthy Activity No restrictions Call your provider Other (abdominal pain, change in bowels) Patient Instructions Resume all year prior home medications. Slowly resume regular diet if bowels or abdominal pain become a problem call your PCP Follow-up Provider: Aletha Maldonado MD Follow-up with PCP in: Other (call Friday 02/16 if doing well make it as needed) Scott Noel MD February 14, 2017 11:00
[2017-02-14] MEDS ORDERED: POLY17PO6 PO (11:05)
[2017-02-14] MEDS ORDERED: HYDR-3939 PO (11:05)
[2017-02-14] MEDS ORDERED: AMLO5TAB2 PO (11:05)
[2017-02-14 11:45] VITALS: BP 168/51; PULSE 72; O2SAT 95
--- NOTE | 2017-02-14 12:10 | NUR ---
Discharge Pt discharged from the floor at 1205. Pt's BP just assessed and is currently elevated. Pt and her daughter do not want the pt to take a PRN BP medication and wait for its effects before leaving. Pt and daughter confirmed that the pt will take her BP four times per day and take the Hydralazine as directed. Hospitalist notified of the pt's BP and the family's decision and agreed that the pt could be discharged. Pt and daughter understand that the pt will need to follow up with her PCP to manage her blood pressure medications. Pt and daughter provided with information on diagnosis, medications, and signs to watch for. Pt taken off the floor in a wheelchair.
--- NOTE | 2017-02-14 13:59 | NUR ---
Social Work: Discharge Data & Assessment: Powdered Sugar Pulverizer Operator met with patient and patient's daughter at bedside discuss discharge plan. Patient will discharge back to [facility]. Patient does not have any discharge needs. Plan: Patient discharge home via POV. SW will continue to follow. Gabriella Catherine LMSW, MYRANDA
--- NOTE | 2017-02-14 15:02 | PCM.DC.MED ---
Discharge Summary Date of Service February 14, 2017 Dates of Hospitalization Date of Hospital Admission February 11, 2017 at 02:12 Date of Discharge: February 14, 2017 Providers: Admitting Physician: Chip Reyes MD Primary Care Physician: Aletha Maldonado MD Attending Physician: Chip Reyes MD Diagnosis at Time of Discharge Diagnosis at Time of Discharge partial bowel obst Consultations None Procedures XRay, CTs & MRIs PROCEDURE: CT ABDOMEN AND PELVIS WITH CONTRAST ([id number]) . ABDOMEN: Lung bases: Lung bases are clear. Heart size is normal. Solid organs: Liver and spleen are normal in size. There is a 1.8 cm cyst in spleen. Gallbladder is surgically absent. Biliary system is mildly dilated. Pancreas enhances normally. No adrenal nodules. Kidneys demonstrate normal size and enhancement, without hydronephrosis. Bilateral low density nodules compatible with renal cysts are present. Peritoneum and bowel: There is fluid in distal esophagus likely secondary to gastroesophageal reflux. Stomach is distended. Small bowel loops mildly distended measuring thickness up to 3.5 cm in diameter. There is transitional point in the mid to distal ileum. Colon loops is decompressed. There are numerous colonic diverticula in sigmoid colon. No evidence for acute diverticulitis. No free fluid or air. Nodes and vessels: No retroperitoneal or mesenteric adenopathy by size criteria. Aorta and inferior vena cava are normal in size. There is moderate to severe atherosclerosis. Miscellaneous: No ventral hernias. PELVIS: Genitourinary: Bladder is distended. Bladder wall thickness is normal. Uterus is atrophic. There is a 1.5 cm calcified fibroid. Miscellaneous: No inguinal hernias or adenopathy. Bones: No suspicious bony lesions. No vertebral body compression fractures. There is mild scoliosis. Severe degenerative changes in lower thoracic and lumbar spine. A right hip prosthesis is noted. IMPRESSION: 1. The CT findings are consistent with moderate small bowel obstruction. The transitional point is in the mid to distal ileum. 2. Diverticulosis. No evidence of active diverticulitis. 3. Bilateral renal cysts and a splenic cyst. No significant discrepancy with the table games shift manager radiology preliminary report. Dictated by: Lesli Wilson M.D. on 02/11/2017 at 9:13 Transcribed by: JULIÁN on 02/11/2017 at 9:19 Approved by: Lesli Wilson M.D. on 02/12/2017 at 7:52 Brief History 86-year-old female presents with a complaint of abdominal pain, constipation, nausea, vomiting since last night. The patient stated that she had severe abdominal pain and decided to call her daughter who then brought her into the emergency room. The patient stated that she did have a bowel movement yesterday morning however as the day progressed she started having increasing abdominal pain. The patient was admitted to the emergency room and was found to have a small bowel obstruction based on CAT scan. NG tube was placed with significant output. Hospital Course 86-year-old female admitted 02/11 presents with a complaint of abdominal pain, constipation, nausea, vomiting x24hrs. 02/12 does not seem patient is making any progress. If nothing changes we will consult surgery tomorrow 02/13 spoke with her granddaughter who is a PACU nurse [facility]. Today we added when necessary hydralazine SBP greater than 160 and prophylactic pantoprazole. Changing NS to d5NS w 20 of K ongoing fluid maintenance in the setting of of hypokalemia and hypernatremia. 02/13 sodium, potassium, magnesium alright today, for now I am stopping IV fluids and hoping patient tolerates by mouth intake, she had large bowel movement overnight. This represents a huge change from my expectations from . We will start her on clear liquids, a gentle bowel regimen, and her regular oral medications. 02/14 other than blood pressure patient has no troubles eating and drinking. No more behavioral problems overnight. She has been pleasant and appropriate and is anxious to discharge. Family is happy to take her. #small bowel obstruction- not needing IV antiemetics/pain meds today. Had large bowel movement overnight -NG tube to suction. By patient overnight 02/13 -Clear liquids 02/13 #Allergies/sinusitis-resume cetirizine/Flonase 02/13 #Hypertension (uncontrolled)Hyperlipidemia- -Start enalapril 1.25 mg IV 02/11, adding hydralazine 10 mg IV every 4 when necessary SBP greater than 160 -Amlodipine resume 10 mg 02/13 -resume atorvastatin 02/13 #Hypothyroidism (stable)-Continue levothyroxine 50 g daily as able. #Depression (stable)- -Continue Zoloft 100 mg by mouth #Asthma (currently stable) -Continue albuterol when necessary -Continue Qvar -Continue montelukast daily #Migraines (he currently stable) -Imitrex when necessary DVT prophylaxis: Lovenox and SCDs Code Status: DNR/DNI Exam Vital Signs (Last) Date Time Temp Pulse Resp B/P Pulse Ox O2 Delivery O2 Flow Rate FiO2 02/14/17 11:45 36.7 72 168/51 95 02/14/17 08:30 20 Room Air 02/14/17 06:01 2.00 Exam Gen.- A+ O 3 no apparent distress. Frail elderly female sitting up in chair seems lucid Eyes- open conjunctiva clear, pupils equal nonicteric Mouth- oral mucosa moist, no exudate ENT- ears normal, nose normal NG tube protruding from nose putting out feculent material, she is extremely hard of hearing but fakes listening well Neck- supple/trach midline CVS- RRR no murmur or gallop Lungs- CTA GI- NT soft, NABS/NT Musc- moving 4 no obvious deformity Neuro- cranial nerves II through XII intact to gross examination, nonfocal Skin- warm and dry, no rashes/lesions/wounds noted Psych- pleasant and appropriate, Test 02/10/17 22:37 02/10/17 22:43 02/10/17 23:27 02/11/17 01:36 Lipase 32U/L (13-60) Prothrombin Time 10.3sec (8.1-12.5) Prothromb Time International Ratio 0.96ratio D-Dimer 2.44mg/L FEU (<0.50) Lactic Acid Level 1.0mmol/L (0.4-2.0) Urine Color Straw (YELLOW) Urine Appearance Clear (CLEAR,HAZY) Urine pH 7.5 (5.0-8.0) Urine Specific [place] 1.020 (1.003-1.035) Urine Protein 300mg/dL (NEG,TRACE) Urine Glucose (UA) 100mg/dL (NEGATIVE) Urine Ketones Negativemg/dL (NEGATIVE) Urine Occult Blood Negative (NEGATIVE) Urine Nitrite Negative (NEGATIVE) Urine Bilirubin Negative (NEGATIVE) Urine Urobilinogen Normalmg/dL (NORMAL) Urine Leukocyte Esterase Negative (NEGATIVE) Urine RBC 0-2/hpf (0-2) Urine WBC 0-5/hpf (0-5) Urine Epithelial Cells Occasional/hpf (NONE-MOD) Urine Crystals Amorphous phosphates Urine Bacteria None/hpf (NONE-FEW) Urine Hyaline Casts None/lpf (NONE) Urine Granular Casts None seen (NONE SEEN) Urine Waxy Casts None seen (NONE SEEN) Urine Red Blood Cell Casts None seen (NONE SEEN) Urine White Blood Cell Casts None seen (NONE SEEN) Urine Mucus None seen (None Seen) Urine Trichomonas None seen (NONE SEEN) Urine Yeast None (NONE SEEN) Urinalysis Comment None Urine Culture Reflexed Not indicated Hold Urine Received (Received) Test 02/12/17 06:35 02/13/17 06:28 Total Bilirubin 0.4mg/dL (0.0-1.2) Aspartate Amino Transf (AST/SGOT) 15U/L (0-50) Alanine Aminotransferase (ALT/SGPT) 12U/L (0-32) Alkaline Phosphatase 52U/L (25-165) Total Protein 5.3g/dL (6.4-8.4) Albumin 2.8g/dL (3.4-5.0) White Blood Count 9.9th/mm3 (3.8-10.1) Red Blood Count 4.25mil/mm3 (3.90-5.20) Hemoglobin 12.7g/dL (12.0-15.6) Hematocrit 39.0% (35.0-46.0) Mean Corpuscular Volume 91.8fL (81-100) Mean Corpuscular Hemoglobin 29.9pg (27.0-35.0) Mean Corpuscular Hemoglobin Concent 32.6% (32.0-37.0) Red Cell Distribution Width 13.3% (12.3-15.4) Platelet Count 138bil/L (150-400) Neutrophils (%) (Auto) 76.6% (40-74) Lymphocytes (%) (Auto) 8.6% (14-46) Monocytes (%) (Auto) 11.1% (4-12) Eosinophils (%) (Auto) 3.1% (0-5) Basophils (%) (Auto) 0.4% (0-3) Sodium Level 142mEq/L (134-144) Potassium Level 3.7mEq/L (3.5-5.2) Chloride Level 104mEq/L (97-108) Carbon Dioxide Level 26mmol/L (18-29) Blood Urea Nitrogen 23mg/dL (8-27) Creatinine 0.84mg/dL (0.57-1.00) Estimat Glomerular Filtration Rate 93mL/min (>59) Glucose Level 147mg/dL (60-99) Calcium Level 8.1mg/dL (8.5-10.1) Magnesium Level 1.9mg/dL (1.6-2.6) Discharge Medications Discharge Medications Amlodipine (Amlodipine) 5 Mg Tablet 10 MG PO DAILY Prescribed by: BETITO HUBER MD Atorvastatin Calcium (Atorvastatin Calcium) 10 Mg Tablet 20 MG PO DAILYWD ( Reported) Beclomethasone Dipropionate (Qvar) 8.7 Gm Aer.w.adap 2 PUFF INHALATION BID ( Reported) Fluticasone Propionate (Flonase Allergy Relief) 50 Mcg/Actuation Mcnary.susp 2 SPRAYS NS BID (Reported) Levothyroxine (Levothyroxine) 50 Mcg Tablet 50 MCG PO DAILY (Reported) Montelukast (Montelukast) 10 Mg Tablet 10 MG PO DAILYWD (Reported) Sertraline HCl (Sertraline) 100 Mg Tablet 100 MG PO DAILYWM (Reported) Tolterodine Tartrate (Tolterodine Tartrate) 2 Mg Tablet 2 MG PO DAILYWM ( Reported) As needed Albuterol Sulfate (Ventolin HFA Inhaler) 200 Puff/18 Gm Inhaler 2 PUFF INH Q4 PRN PRN so (Reported) Hydralazine (Hydralazine) 25 Mg Tablet 25 MG PO Q4H PRN PRN sbp >160 Prescribed by: BETITO HUBER MD Polyethylene Glycol 3350 (Miralax) 17 Gm Powd.pack 17 GM PO DAILY PRN PRN For Constipation Prescribed by: BETITO HUBER MD Sumatriptan (Imitrex) 25 Mg Tablet 25 MG PO DAILY PRN PRN For Pain (Reported) Followup Plan Disposition: Patient going home living semi-independently interpreted family is nearby but she is alone Discharge Diet: Heart Healthy Discharge Activity: No restrictions Patient Instructions Resume all year prior home medications. Slowly resume regular diet if bowels or abdominal pain become a problem call your PCP Follow-up Provider: Aletha Maldonado MD Follow-up with PCP in: Other (should probably be seen in next 1-2 weeks for significant hypertension probably needs more medication.) Time spent Greater than 30 minutes Attending Statement Patient is being discharged on Norvasc 10 mg now, her systolic blood pressure ran persistently near 200, we started using when necessary hydralazine 25 mg. I was reluctant to add lisinopril to her regimen just yet but have every expectation that she needs 20 mg if not 40 mg and/or HCTZ. Recommend following up with PCP in the next 5-10 days for blood pressure check. In the meantime family should be monitoring her blood pressure recording these values and bringing them to PCP for evaluation of adding/increasing BP meds. copies to: Aletha Maldonado MD, Andris E MD February 14, 2017 15:02
[2017-02-15] MEDS ORDERED: HYDR25TA4 PO (16:25)
== END 2017-02-14 12:31 | DRG 389 ==
LOC: EDUNIT# 22:13 → EDBD 22:13 → SED 22:13 → OFED 02-11 02:12 → MOC 02-11 09:56
PROVIDERS: ADMIT Hospitalist; ATTEND Neuromusculoskeletal Medicine & OMM
DX: K56.60 Unspecified intestinal obstruction (principal); E87.0 Hyperosmolality and hypernatremia; I10 Essential (primary) hypertension; E78.5 Hyperlipidemia, unspecified; E03.9 Hypothyroidism, unspecified; F32.9 Major depressive disorder, single episode, unspecified; J45.909 Unspecified asthma, uncomplicated; E11.9 Type 2 diabetes mellitus without complications

== ENCOUNTER 2017-02-15 15:04 | Emergency (ER) | payer MEDICARE ==
[~2017-02-15] VITALS: Ht 152.4 cm; Wt 61.8 kg
[~2017-02-15 15:04] MED LIST changes: +ALBU18HF INH; +AMLO5TAB2 PO; +BECL8.7A6 INHALATION; +FLUT9.9S NS; +HYDR-3939 PO; +IMI25 PO; +POLY17PO6 PO
[2017-02-15 15:17] VITALS: BP 193/75; PULSE 80; RESP 24; O2SAT 94
[2017-02-15 15:37] VITALS: BP 193/75; PULSE 80; RESP 24; O2SAT 94
--- NOTE | 2017-02-15 15:39 | ED.REPORT ---
HPI-General Illness Date of Service February 15, 2017 ED Provider: Roque Carmen MD Pt is an 86 year old female with a hx of COPD, DM, asthma, hyperlipidemia, and HTN presenting to the ED complaining of high blood pressure and a mild headache onset today. Associated symptoms include fatigue, lightheadedness, subjective fever. Denies any weakness, swelling, chest pain, diaphoresis, change in appetite. She reports that after eating lunch today she felt much better. The pt was just discharged yesterday from the hospital for a bowel obstruction. The pt's blood pressure today was 204/106. Nursing Notes Stated Complaint: HIGH BLOOD PRESSURE Chief Complaint: General Complaint Nursing Notes Reviewed: Yes ([employer], [employer] not reconciled) Allergies: Coded Allergies: losartan (Verified Allergy, Unknown, RASH, 02/15/17) Scheduled Amlodipine (Amlodipine) 5 Mg Tablet 10 MG PO DAILY Atorvastatin Calcium (Atorvastatin Calcium) 10 Mg Tablet 20 MG PO DAILYWD Beclomethasone Dipropionate (Qvar) 8.7 Gm Aer.w.adap 2 PUFF INHALATION BID Fluticasone Propionate (Flonase Allergy Relief) 50 Mcg/Actuation [place].susp 2 SPRAYS NS BID Hydrochlorothiazide (Hydrochlorothiazide) 25 Mg Tablet 25 MG PO DAILY Levothyroxine (Levothyroxine) 50 Mcg Tablet 50 MCG PO DAILY Montelukast (Montelukast) 10 Mg Tablet 10 MG PO DAILYWD Sertraline HCl (Sertraline) 100 Mg Tablet 100 MG PO DAILYWM Tolterodine Tartrate (Tolterodine Tartrate) 2 Mg Tablet 2 MG PO DAILYWM Scheduled PRN Albuterol Sulfate (Ventolin HFA Inhaler) 200 Puff/18 Gm Inhaler 2 PUFF INH Q4 PRN PRN so Hydralazine (Hydralazine) 25 Mg Tablet 25 MG PO Q4H PRN PRN sbp >160 Polyethylene Glycol 3350 (Miralax) 17 Gm Powd.pack 17 GM PO DAILY PRN PRN For Constipation Sumatriptan (Imitrex) 25 Mg Tablet 25 MG PO DAILY PRN PRN For Pain General Time Seen by MD: 15:34 Chief Complaint Headache Hx Obtained From: Patient Arrived By: Walk-in Sudden in Onset?: No Onset Occurred: 5 - 8 hours ago Symptom Duration: Since onset Location: : Head Quality: Painful Severity: Current: Mild Severity: Maximum: Mild Recent Healthcare: No recent doctor visit, Recent hospitalization Similar Sx Previous: No Past Medical History Past Medical History Notes: Admit 02/11- for partial SBO, and hypertension during hospitalization discharge are Norvasc with systolics near 200, with hydralazine 25 mg Past Medical History Varicose veins Hearing loss Hypertension DVT, left lower extremity, 2015 no longer on Coumadin h/o SBO Reports: Asthma, COPD, Diabetes mellitus, Hyperlipidemia Reports: Depression, Renal insufficiency, Thyroid disease Past Surgical History Stapedectomy Breast Bx Reports: Cataract surgery, Cholecystectomy Reports: Hip replacement Smoking History Former Smoker Social History Alcohol Use: "Social" Other Social History: Good social support, Lives alone Ambulatory Status Walker Review of Systems Full Review of Systems Constitutional: Reports: Fatigue, Fever Cardiovascular: Denies: Chest pain Musculoskeletal: Denies: Extremity swelling Skin: Denies Diaphoresis Neurologic: Reports: Headache, Lightheaded, Denies: Weakness Complete sys rev & neg: except as marked. Physical Exam Vital Signs Vital Signs Date Time Temp Pulse Resp B/P Pulse Ox O2 Delivery O2 Flow Rate FiO2 02/15/17 17:26 37.6 80 24 169/52 94 Room Air 02/15/17 15:40 37.6 80 24 169/52 94 Room Air 02/15/17 15:37 37.6 80 24 193/75 94 Room Air 02/15/17 15:17 38.1 80 24 193/75 94 Room Air Initial VS: Reviewed General/Constitutional: Well-developed, Well-nourished Head / Eyes: Atraumatic, Normocephalic, PERRL ENT: Mucous membranes moist, Conjunctiva normal, No scleral icterus Respiratory: Breath sounds normal, Clear to auscultation, No respiratory distress Cardiovascular: Regular rate & rhythm, Heart sounds normal, Intact distal pulses Abdomen / GI: Soft, Non-tender, No guarding, No rebound, No distention Extremities: Vascular intact, Neuro intact, No swelling, No tenderness Skin: Warm, Dry, No cyanosis Neurologic: Alert, Oriented, Nonfocal Psychiatric: Mood/affect normal, Behavior normal, Normal thought content Interpretation & Diagnostics Lab Results Interpretation Result Diagram: 02/15/17 1603 02/15/17 1603 Test 02/15/17 16:03 White Blood Count 7.5th/mm3 (3.8-10.1) Red Blood Count 4.80mil/mm3 (3.90-5.20) Hemoglobin 14.1g/dL (12.0-15.6) Hematocrit 42.5% (35.0-46.0) Mean Corpuscular Volume 88.5fL (81-100) Mean Corpuscular Hemoglobin 29.4pg (27.0-35.0) Mean Corpuscular Hemoglobin Concent 33.2% (32.0-37.0) Red Cell Distribution Width 13.4% (12.3-15.4) Platelet Count 175bil/L (150-400) Neutrophils (%) (Auto) 72.1% (40-74) Lymphocytes (%) (Auto) 12.6% (14-46) Monocytes (%) (Auto) 9.1% (4-12) Eosinophils (%) (Auto) 5.2% (0-5) Basophils (%) (Auto) 0.5% (0-3) Sodium Level 141mEq/L (134-144) Potassium Level 3.5mEq/L (3.5-5.2) Chloride Level 102mEq/L (97-108) Carbon Dioxide Level 24mmol/L (18-29) Blood Urea Nitrogen 26mg/dL (8-27) Creatinine 0.94mg/dL (0.57-1.00) Estimat Glomerular Filtration Rate 81mL/min (>59) Glucose Level 191mg/dL (60-99) Lactic Acid Level 1.2mmol/L (0.4-2.0) Calcium Level 8.5mg/dL (8.5-10.1) Total Bilirubin 0.2mg/dL (0.0-1.2) Aspartate Amino Transf (AST/SGOT) 16U/L (0-50) Alanine Aminotransferase (ALT/SGPT) 14U/L (0-32) Alkaline Phosphatase 61U/L (25-165) Total Protein 6.0g/dL (6.4-8.4) Albumin 2.5g/dL (3.4-5.0) Lab Results Interpretation: CBC normal CMP normal lactic acid normal Re-Eval/Medical Decision Med Decision/Clinical Course This is an 86-year-old female presents with a chief complaint of high blood pressure. The patient was recently hospitalized for a partial small bowel obstruction and the hospitalization noted be hypertensive. She did not have any symptoms, was discharged in increased dose of amlodipine, as well as some when necessary hydralazine which she has been taking. She noted her blood pressure up around 190 systolic, became frustrated and worried so came to the ED. She had no distal complaints. Interestingly at triage. A borderline fever , but she does not have symptoms of a fever no additional complaints. Recheck of the low temperature was normal. The patient clinically appears well with no surgical findings on exam. Given the abnormal temperature screening blood work was obtained that was normal. The patient was clinically well-appearing she has no evidence of end organ pathology. Everything points asymptomatic retention. Several long discussion with the patient. At this point the plan is discharge to home with follow-up with the PCP, the patient maintain her new dose of amlodipine 10 mg at bedtime. We will start hydrochlorothiazide, which was the plan discussed in the hospitalist note, at a dose of 25 mg each a.m.-and uses to replace the "when necessary" hydralazine that was being used. The patient is to call to schedule a recheck in a week to 2 weeks with PCP to allow some time for the initial blood pressure medications to have their effect before deciding whether or not this is be escalated and/or change. Patient's entirely comfortable with this and is being discharged in good condition. Source of Hx: Old records Time of Eval: 16:31 Patient Status: Condition improved Re-Evaluation/Progress Note: Discussed plan for discharge. Pt understands and agrees with plan. All pt questions addressed. Differential Diagnosis: Negative: Abdominal pain, Acute coronary syndrome, Fracture, G-tube repair/replacement, Malingering, Neutropenia Counseled Regarding: Diagnosis, Lab results, Need for follow-up, When/why to return to ED Discharge & Departure Primary Impression: High blood pressure Hypertension type: essential hypertension Qualified Code: I10 - Essential ( primary) hypertension Disposition: Home Discharge Condition All VS Reviewed: Yes Condition: Improved Additional Instructions: 1. Continue your amlodipine at the new dose of 10 mg daily. Take in the evening. Do not skip. 2. Start a new blood pressure medicine hydrochlorothiazide "HCTZ" 25 mg once a day starting tomorrow morning. He will use this medicine *INSTEAD* of the "as needed" hydralazine. Allow this medication 1-2 weeks to take effect, and then reevaluate. 3. Your primary care physician tomorrow morning, to set up an appointment in the next 1-2 weeks for a recheck your blood pressure. Continue to monitor your blood pressure and write down and record the numbers, but my recommendation was simply write the numbers down History of feeling okay, and do not pay much attention to them-we are interested in what the trend is over time. 4. You had a borderline fever measured at triage, although we will repeated her temperature it was normal. So we did obtain blood work today to recheck things, and your blood work was normal. 5. Happy Mother's Day! Referrals: Aletha Maldonado MD (PCP) Scribe Attestation Portions of this note were transcribed by Lisa Snell. I, Dr. Carmen personally performed the history, physical exam and medical decision-making; I reviewed and confirmed the accuracy of the information in the transcribed note. Signed by: Yarely Nguyen, 02/15/2017 at 1630. copies to: Aletha Maldonado MD, Matthew F MD February 15, 2017 15:39 LISA SNELL February 15, 2017 16:00
[2017-02-15 15:40] VITALS: BP 169/52; PULSE 80; RESP 24; O2SAT 94
[2017-02-15 16:09] LABS: BASOPHILS % (AUTO) 0.5 % (0-3); EOSINOPHILS % (AUTO) 5.2 % (0-5); MONOCYTES % (AUTO) 9.1 % (4-12); Mean Corpuscular Hemoglobin 29.4 pg (27.0-35.0); Mean Corpuscular Volume 88.5 fL (81-100); NEUTROPHILS % (AUTO) 72.1 % (40-74); Platelet Count 175 bil/L (150-400)
[2017-02-15] MEDS ORDERED: HYDR25TA4 PO (16:25)
[2017-02-15 17:26] VITALS: BP 169/52; PULSE 80; RESP 24; O2SAT 94
== END 2017-02-15 17:00 | disposition home or self-care (01) ==
LOC: SED 15:04
DX: I10 Essential (primary) hypertension (principal); E11.9 Type 2 diabetes mellitus without complications; J44.9 Chronic obstructive pulmonary disease, unspecified; E78.5 Hyperlipidemia, unspecified; E07.9 Disorder of thyroid, unspecified; Z86.718 Personal history of other venous thrombosis and embolism; Z79.51 Long term (current) use of inhaled steroids; Z88.8 Allergy status to other drugs, medicaments and biological substances; Z87.891 Personal history of nicotine dependence